=== PATIENT | male | born 1995 | race Caucasian/White ===

== ENCOUNTER 2023-05-19 18:26 | Emergency (ER) | payer SELFPAY ==
[2023-05-19 18:26] VITALS: BP 142/80
--- NOTE | 2023-05-19 18:46 | ED Upper Extremity ---
General Chief Complaint: Laceration Stated Complaint: LT FINGER LAC History of Present Illness Date Seen by Provider: May 19, 2023 Time Seen by Provider: 06:32 Initial Comments 27 yr M is here with c/o left index finger laceration after he was trying to clean fish. This occurred today. Pt is able to move fingers without any issues. Allergies and Home Medications Allergies Coded Allergies: No Known Drug Allergies (Unverified , 05/19/23) Patient Home Medication List Home Medication List Reviewed: Yes Review of Systems Constitutional: no symptoms reported EENTM: no symptoms reported Musculoskeletal: see HPI, other Skin: see HPI Past Rskqbqm-Pychqv-Rqraeo Hx Patient Social History Tobacco Use?: No Use of E-Cig and/or Vaping dev: No Substance use?: Yes Substance type: Marijuana Substance frequency: Once in a while Alcohol Use?: Yes Alcohol Frequency: Once in a while Pt feels they are or have been: No Past Medical History Surgery/Hospitalization HX: Left hip impingment Physical Exam Vital Signs Vital Signs - First Documented 05/19/23 18:26 Pulse 82 Resp 16 B/P (MAP) 142/80 (100) Pulse Ox 97 O2 Delivery Room Air Capillary Refill : Height, Weight, BMI Height: '" Weight: lbs. oz. kg; BMI Method: General Appearance: WD/WN, no apparent distress HEENT: PERRL/EOMI Neck: full range of motion Hand: normal ROM, Left (Left index finger, PIP, dorsal surface shows a 1.75 cm laceration, superficial on epidermal layer only. No foreign body. ROM unrestricted, N/V bundle intact.) Neurologic/Tendon: normal sensation, normal motor functions, normal tendon functions Neurologic/Psychiatric: no motor/sensory deficits, alert, oriented x 3 Skin: normal color Procedures/Interventions Wound Location: Upper Extremities Other Wound Location left index finger laceration Wound Length (cm): 1.7 Wound's Depth, Shape: superficial Wound Explored: clean Irrigated w/ Saline (ccs): 50 Betadine Prep?: No Anesthesia: 1% Lidocaine Volume Anesthetic (ccs): 8 Suture: Ethlion Suture Size: 4-0 Number of Sutures: 4 Sterile Dressing Applied?: Yes Progress/Results/Core Measures Results/Orders Vital Signs/I&O 05/19/23 18:26 Pulse 82 Resp 16 B/P (MAP) 142/80 (100) Pulse Ox 97 O2 Delivery Room Air Progress Progress Note : Progress Note 1. LEFT INDEX FINGER LACERATION: - Wound irrigated with sterile water, 4 interrupted sutures placed. Good apposition and bleeding stopped. - Wound care instructions given - Return to ER for suture removal in 7 days - work note given. 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 Referrals: NO,LOCAL PHYSICIAN (PCP/Family) Primary Care Physician Patient Instructions: Laceration Repair With Stitches ED, Wound Care ED Add. Discharge Instructions: - Daily wound care instructions given - Return for suture removal in 7 days All discharge instructions reviewed with patient and/or family. Voiced understanding. Work/School Note: Work Release Form Date Seen in the Emergency Department: May 19, 2023 Return to Work: May 26, 2023 Restrictions: Need Release from Doctor Other Restrictions Listed Below: Return to work after sutures are removed, unless desk job is available. HENRIETTA MACIAS MD May 19, 2023 18:46
== END 2023-05-19 19:45 | disposition home or self-care (01) ==
LOC: ER FS 18:29
DX: S61.211A Laceration without foreign body of left index finger without damage to nail, initial encounter (principal); Z28.310 Unvaccinated for COVID-19; W26.0XXA Contact with knife, initial encounter
CPT/HCPCS: 12001